=== PATIENT | female | born 1995 | race Caucasian/White ===

== ENCOUNTER 2020-02-04 13:09 | Emergency (ER) | payer MEDICAID, SELFPAY ==
[2020-02-04 13:33] VITALS: BP 134/65; PULSE 111; RESP 18; TEMP 37.4; O2SAT 99; BMI 24.4
--- NOTE | 2020-02-04 14:05 | ED.SKABFB ---
HPI - Skin/Abscess/Foreign Bdy General Chief complaint: Skin/Abscess/Foreign Body <BARRON Frausto Last Filed: 02/04/20 17:45> Stated complaint: knee infection <BARRON Frausto Last Filed: 02/04/20 17:45> Time Seen by Provider: 02/04/20 13:54 <BARRON Frausto Last Filed: 02/04/20 17:45> Source: patient <BARRON Frausto Last Filed: 02/04/20 17:45> Mode of arrival: ambulatory <BARRON Frausto Last Filed: 02/04/20 17:45> Limitations: no limitations <BARRON Frausto Last Filed: 02/04/20 17:45> History of Present Illness HPI narrative: patient presents to ED for left knee pain for about 2 days. Patient states left knee has a erythematous rashPainful period and warm. Patient states no swelling of lower extremities, development of red streaks, inability to bend or extend knee, fever, or chills. Patient denies any recent trauma to the area. Patient denies any chest pain or shortness of breath. <BARRON Frausto Last Filed: 02/04/20 17:45> MD complaint: rash <BARRON Frausto Last Filed: 02/04/20 17:45> Related Data Home medications: Previous Rx's Medication Instructions Recorded clindamycin HCl 300 mg PO QID #28 cap 02/04/20 naproxen 500 mg PO BID PRN #20 tab 02/04/20 <BARRON Frausto Last Filed: 02/04/20 17:45> Allergies/Adverse reactions: Allergies Allergy/AdvReac Type Severity Reaction Status Date / Time Penicillins [PENICILLINS] Allergy Mild RASH Verified 02/04/20 13:40 amoxicillin [AMOXICILLIN] Allergy Unknown RASH Verified 02/04/20 13:40 prednisone [PREDNISONE] Allergy Unknown DIFF Verified 02/04/20 13:40 BREATHING, AGGITATION <BARRON Frausto Last Filed: 02/04/20 17:45> Review of Systems Review of Systems: Yes all other systems are reviewed and are negative <BARRON Frausto Last Filed: 02/04/20 17:45> Constitutional: Constitutional: Reports as per HPI and Reports no additional constitutional complaints <BARRON Frausto Last Filed: 02/04/20 17:45> Eyes: Eyes: Reports as per HPI and Reports no additional eye complaints <BARRON Frausto Last Filed: 02/04/20 17:45> ENT: Reports system reviewed and no additional complaints, except as documented and Reports as per HPI <BARRON Frausto Last Filed: 02/04/20 17:45> Cardiovascular: Cardiovascular: Reports as per HPI and Reports no additional cardiovascular complaints <BARRON Frausto Last Filed: 02/04/20 17:45> Respiratory: Respiratory: Reports as per HPI and Reports no additional respiratory complaints <BARRON Frausto Last Filed: 02/04/20 17:45> Gastrointestinal: Gastrointestinal: Reports as per HPI and Reports no additional gastrointestinal complaints <BARRON Frausto Last Filed: 02/04/20 17:45> Genitourinary: Genitourinary: Reports no additional female genitourinary complaints and Reports as per HPI <BARRON Frausto Last Filed: 02/04/20 17:45> Musculoskeletal: Comments: Left knee erythema <BARRON Frausto Last Filed: 02/04/20 17:45> Neurologic: Reports system reviewed and no additional complaints, except as documented and Reports as per HPI <BARRON Frausto Last Filed: 02/04/20 17:45> Psychiatric: Psychiatric: Reports no additional psychiatric complaints and Reports as per HPI <BARRON Frausto Last Filed: 02/04/20 17:45> [facility] Past Medical History Medical History: Medical History (Updated 02/05/20 @ 00:00 by Isaias Noriega) Crohn's disease Hepatitis-C Ulcerative colitis <BARRON Frausto Last Filed: 02/04/20 17:45> Surgical History: Surgical History (Updated 02/04/20 @ 13:38 by Jocelyne aHrgrove) History of gynecologic surgery <BARRON Frausto Last Filed: 02/04/20 17:45> Social History Social History: Social History Advance Directives: No Advance Directives Information Provided: Yes <BARRON Frausto - Last Filed: 02/04/20 17:45> Physical Exam Vital Signs: Vital Signs: Vital Signs Temp Pulse Resp BP Pulse Ox 02/04/20 13:33 99.4 F 111 H 18 134/65 99 Body Mass Index 24.4 <BARRON Frausto - Last Filed: 02/04/20 17:45> Vital Signs: Vital Signs Temp Pulse Resp BP Pulse Ox 02/04/20 13:33 99.4 F 111 H 18 134/65 99 Body Mass Index 24.4 <Peter Burk MD - Last Filed: 02/15/20 01:42> Const: General: cooperative, healthy appearing, comfortable, no acute distress, well developed and alert <BARRON Frausto Last Filed: 02/04/20 17:45> Orientation/consciousness: oriented to person, oriented to place and oriented to time <BARRON Frausto Last Filed: 02/04/20 17:45> HENMT: Head: Yes normal to inspection and Yes No palpable skull fracture present <BARRON Frausto Last Filed: 02/04/20 17:45> Eyes: General: appearance normal, both eyes and all related structures <BARRON Frausto Last Filed: 02/04/20 17:45> Neck: Neck: Yes normal visual inspection <BARRON Frausto Last Filed: 02/04/20 17:45> Chest: Chest palpation & inspection: normal inspection of the chest and normal palpation of entire chest wall <BARRON Frausto Last Filed: 02/04/20 17:45> Resp: Effort & Inspection: normal respiratory effort and able to speak in complete sentences <BARRON Frausto Last Filed: 02/04/20 17:45> Cardio: Jugular venous distension: no JVD <BARRON Frausto Last Filed: 02/04/20 17:45> Heart sounds: S1 normal heart sound present and S2 normal heart sound present <BARRON Frausto Last Filed: 02/04/20 17:45> GI: Inspection: Yes normal to inspection and No abdominal wall ecchymosis <BARRON Frausto Last Filed: 02/04/20 17:45> : General: No CVA tenderness and Yes no CVA tenderness <BARRON Frausto Last Filed: 02/04/20 17:45> Back/Spine/Pelvis: Back: no CVA tenderness, No CVA tenderness and No back tenderness <BARRON Frausto Last Filed: 02/04/20 17:45> Skin: Other: left knee cellulitis. <BARRON Frausto - Last Filed: 02/04/20 17:45> Neuro: General: oriented to person, oriented to place, oriented to time, patient oriented x3, gait normal and CN's II-XI intact bilaterally <BARRON Frausto - Last Filed: 02/04/20 17:45> Cranial nerves: Yes CN's II-XII intact bilaterally <BARRON Frausto Last Filed: 02/04/20 17:45> Extrem: Other: Left Knee positive for pimple/port of entry with surrounding erythema that is warm ( cellulitis is below patella). Patient has complete range of motion of left knee. Patient able to extend and flex knee without any pain or limitation. Negative for red streaks or swelling of leg calf ankle or foot. History physical exam does not indicate septic joint. Bedside ultrasound of area confrims cellulitis negative for any abscess collection. Vascular exam is intact. Right lower extremity is normal. <BARRON Frausto - Last Filed: 02/04/20 17:45> Psych: Appearance: grossly normal and well kempt <BARRON Frausto - Last Filed: 02/04/20 17:45> Course Course Course Narrative: History physical exam does not indicate abscess or septic joint. Exam indicates cellulitis. area of erythema will be marked and patient informed to return to the ED in 2 days for re-evaluation. Patient informed of erythema spreads beyond marker to return to the ED. <BARRON Frausto Last Filed: 02/04/20 17:45> I have reviewed the chart <Peter Burk MD - Last Filed: 02/15/20 01:42> Reevaluation(s) Reevaluation #1: Patient educated on importance of evaluating area of cellulitis and return to the ED immediately she has fever, chills, inability to bend ( flex) or extend knee, inability to walk, chest pain, shortness of breath, development of red streaks, calf pain, or any other concerning symptoms. <BARRON Frausto Last Filed: 02/04/20 17:45> Time: 14:12 <BARRON Frausto - Last Filed: 02/04/20 17:45> MDM - Skin/Abscess/Foreign Bdy MDM Narrative Medical decision making narrative: left knee cellulitis. <BARRON Frausto Last Filed: 02/04/20 17:45> Discharge Plan Discharge Clinical Impression: Cellulitis <BARRON Frausto Last Filed: 02/04/20 17:45> Patient Disposition: Home, Self-Care <BARRON Frausto Last Filed: 02/04/20 17:45> Instructions: Cellulitis (ED) <BARRON Frausto Last Filed: 02/04/20 17:45> Additional Instructions: return to the ED immediately if the erythema spreads beyond marker, swelling of leg, calf, development of red streak going down legs or going up thigh, inability to flex or extend knee, fever, chills, swelling, chest pain, shortness of breath, or any other concerning symptoms. Please follow-up with the PCP for re-evaluation as soon as possible. Return to the ED in 2 days for re-evaluation <BARRON Frausto Last Filed: 02/04/20 17:45> Prescriptions: New clindamycin HCl 300 mg capsule 300 mg PO QID Qty: 28 RF: 0 naproxen 500 mg tablet 500 mg PO BID PRN (Reason: pain) Qty: 20 RF: 0 <BARRON Frausto Last Filed: 02/04/20 17:45> Interventions: ED Discharge Assessment Last Done: 02/04/20 14:43 <BARRON Frausto Last Filed: 02/04/20 17:45> Discharge Date/Time: 02/04/20 14:47 <BARRON Frausto - Last Filed: 02/04/20 17:45> Print Language: [place] <BARRON Frausto Last Filed: 02/04/20 17:45>
== END 2020-02-04 14:47 | disposition home or self-care (01) ==
PROVIDERS: Emergency Provider Emergency Medicine
DX: L03.116 Cellulitis of left lower limb (principal); M25.562 Pain in left knee; Z79.899 Other long term (current) drug therapy
CPT/HCPCS: 99283

== ENCOUNTER 2020-02-23 10:52 | Emergency (ER) | payer MEDICAID, SELFPAY ==
[2020-02-23 11:10] VITALS: BP 129/73; PULSE 105; RESP 16; TEMP 37.6; O2SAT 98; BMI 23.4
--- NOTE | 2020-02-23 11:37 | ED_ITS ---
HPI - Skin/Abscess/Foreign Bdy General Chief complaint: Wound/Laceration Stated complaint: needle stuck in arm Time Seen by Provider: 02/23/20 11:35 History of Present Illness HPI narrative: Patient is IV drug user who has needle got stuck in the forearm right side this morning, no other complaint, no numbness no weakness Related Data Previous Rx's Medication Instructions Recorded clindamycin HCl 300 mg PO QID #28 cap 02/04/20 naproxen 500 mg PO BID PRN #20 tab 02/04/20 clindamycin HCl 300 mg PO TID 3 Days #9 cap 02/23/20 doxycycline hyclate 100 mg PO BID 3 Days #6 cap 02/23/20 Allergies Allergy/AdvReac Type Severity Reaction Status Date / Time Penicillins [PENICILLINS] Allergy Mild RASH Verified 02/04/20 13:40 amoxicillin [AMOXICILLIN] Allergy Unknown RASH Verified 02/04/20 13:40 prednisone [PREDNISONE] Allergy Unknown DIFF Verified 02/04/20 13:40 BREATHING, AGGITATION Review of Systems Review of Systems: No fever no chills no numbness no weakness no pain no dizziness no difficulty moving fingers or wrist Yes all other systems are reviewed and are negative [facility] Past Medical History Attestation statement: The following information was validated with the patient. [facility] Narrative: Patient is regular IV drug user Source: nursing notes reviewed Medical History (Updated 02/23/20 @ 12:51 by BARRON Hernandes) Crohn's disease Hepatitis-C IV drug abuse Ulcerative colitis Surgical History (Updated 02/04/20 @ 13:38 by Jocelyne Hargrove) History of gynecologic surgery Social History Social History Advance Directives: No Advance Directives Information Provided: Yes Physical Exam Vital Signs: Vital Signs: Last Vital Signs Temp 99.7 F 02/23/20 11:10 Pulse 105 H 02/23/20 11:10 Resp 16 02/23/20 11:10 BP 129/73 02/23/20 11:10 Pulse Ox 98 02/23/20 11:10 Body Mass Index 23.4 Patient is A&O x3 comfortable no distress Neck is supple Respiratory no distress Right forearm is neurovascular intact there is no obvious new wound there are needle dawn in the arm but no redness swelling or sign of infection, radial pulse is intact and normal, sensation and motor function in fingers are normal and all tendon function is normal Discharge Plan Discharge Clinical Impression: Foreign body (FB) in soft tissue Patient Disposition: Home, Self-Care Additional Instructions: X-ray showed the needle buried under the skin in the right forearm I did not remove it as it may be difficult to find and if it causes no symptoms it can probably stay there Return any time for redness swelling fever pain any sign of infection Follow with orthopedist if you want to see about removing the foreign body by specialist Prescriptions: New clindamycin HCl 300 mg capsule 300 mg PO TID 3 Days Qty: 9 RF: 0 doxycycline hyclate 100 mg capsule 100 mg PO BID 3 Days Qty: 6 RF: 0 No Action clindamycin HCl 300 mg capsule 300 mg PO QID Qty: 28 RF: 0 naproxen 500 mg tablet 500 mg PO BID PRN (Reason: pain) Qty: 20 RF: 0 Interventions: ED Discharge Assessment Last Done: 02/23/20 13:12 Discharge Date/Time: 02/23/20 13:13
--- NOTE | 2020-02-23 11:37 | XR_ITS ---
EXAMINATION: XR FOREARM, RIGHT CLINICAL INFORMATION: Needle foreign body COMPARISON: None TECHNIQUE: AP and lateral views of the right forearm were obtained. FINDINGS: Bone alignment is normal. No fracture or dislocation is seen. The joint spaces are normal. There is a soft tissue foreign body compatible with a needle in the lateral volar soft tissues of the upper forearm. XR/XR forearm RT 2V IMPRESSION: Soft tissue foreign body compatible with a needle in the lateral volar forearm.
== END 2020-02-23 13:13 | disposition home or self-care (01) ==
PROVIDERS: Emergency Provider Emergency Medicine
DX: M60.221 Foreign body granuloma of soft tissue, not elsewhere classified, right upper arm (principal); Z79.899 Other long term (current) drug therapy
CPT/HCPCS: 73090; 99283

== ENCOUNTER 2021-03-10 04:11 | Emergency (ER) | payer MEDICAID, SELFPAY ==
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
[2021-03-10 04:13] VITALS: BP 134/60; PULSE 95; RESP 16; TEMP 36.6; O2SAT 98; BMI 22.0
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
--- NOTE | 2021-03-10 04:42 | PC.NURSE ---
PT UP TO RESTROOM WITH STEADY EVEN GAIT TO RESTROOM AND RETURNED TO ROOM.
[2021-03-10 05:51] VITALS: BP 113/67; PULSE 90; RESP 16; TEMP 37.2; O2SAT 97
--- NOTE | 2021-03-10 06:58 | PC.NURSE ---
pt is not having slurred speech, pt up and ambulates with steady even gait to wr. pt denies any complaints at this time.
== END 2021-03-10 07:05 | disposition home or self-care (01) ==
PROVIDERS: Emergency Provider Emergency Medicine
DX: S16.1XXA Strain of muscle, fascia and tendon at neck level, initial encounter (principal); M54.50 Low back pain, unspecified; M54.2 Cervicalgia; G44.309 Post-traumatic headache, unspecified, not intractable; V47.5XXA Car driver injured in collision with fixed or stationary object in traffic accident, initial encounter; Y93.9 Activity, unspecified; Y92.410 Unspecified street and highway as the place of occurrence of the external cause; Y99.9 Unspecified external cause status; Z79.899 Other long term (current) drug therapy
CPT/HCPCS: 70450; 72100; 72125; 99283; 99284